=== PATIENT | female | born 1955 | race Caucasian/White ===

== ENCOUNTER 2020-04-24 04:00 | Emergency (ER) | payer SELFPAY ==
[~2020-04-24] VITALS: Ht 157.5 cm; Wt 65.8 kg
[2020-04-24 04:05] VITALS: BP 127/77
[2020-04-24 04:42] VITALS: BP 127/77
== END 2020-04-24 04:42 | disposition home or self-care (01) ==
LOC: MED 04:00
DX: K92.1 Melena (principal); Z85.048 Personal history of other malignant neoplasm of rectum, rectosigmoid junction, and anus
CPT/HCPCS: 99281

== ENCOUNTER 2020-09-14 13:14 | Emergency (ER) | payer MEDICAID ==
[~2020-09-14] VITALS: Ht 160 cm; Wt 68.0 kg
[2020-09-14 13:19] VITALS: BP 127/54
--- NOTE | 2020-09-14 13:23 | NUR ---
PT TO AWAIT IN LOBBY
--- NOTE | 2020-09-14 13:50 | NUR ---
PT TAKEN FOR ULTRASOUND VIA W/C
[2020-09-14 15:49] LABS: BASOPHILS # (AUTO) 0.1 K/uL (0.00-0.22); BASOPHILS % (AUTO) 0.7 % (0.0-2.0); EOSINOPHILS # (AUTO) 0.3 K/uL (0-0.4); EOSINOPHILS % (AUTO) 2.7 % (0.0-4.0); HEMATOCRIT 40.9 % (36-48); HEMOGLOBIN 13.3 g/dL (12.0-16.0); LYMPHOCYTES # (AUTO) 2.9 K/uL (2.5-16.5); LYMPHOCYTES % (AUTO) 28.1 % (20.5-51.1); MEAN CORPUSCULAR HEMOGLOBIN 29 pg (27-31); MEAN CORPUSCULAR HGB CONC 33 g/dL (33-37); MEAN CORPUSCULAR VOLUME 89.4 fL (80-94); MONOCYTES # (AUTO) 0.9 K/uL (0.8-1.0); MONOCYTES % (AUTO) 9.2 % (1.7-9.3); NEUTROPHILS % (AUTO) 59.3 % (42.2-75.2); PLATELET COUNT (AUTO) 429 K/uL (140-450); RED BLOOD CELL COUNT(AUTO) 4.57 MIL/uL (4.20-5.40); RED CELL DISTRIBUTION WIDTH 13.7 % (11.6-13.7); WHITE BLOOD COUNT (AUTO) 10.2 K/uL (4.8-10.8)
--- NOTE | 2020-09-14 16:05 | NUR ---
Ambulated to bed 10
--- NOTE | 2020-09-14 16:08 | NUR ---
65/F presents to ED with c/o right upper arm pain since today. Patient states "I think I have a blood clot in my upper arm." Patient states her arm has been having a constant dull pain, states "it is getting swollen and red and purple." No swelling, redness or warmth noted to are, patient able to move extremities equally and appropriately, site is non tender to touch. Pulses and sensation equal bilaterally, patient had port placed in right upper chest 3 weeks ago for chemo treatments for dx of rectal cancer. Patient alert and oriented x4, answering questions appropriately in full clear sentences.
[2020-09-14 16:11] LABS: PROTHROMBIN TIME 9.4 secs (10.8-13.4)
[2020-09-14 16:30] LABS: ALBUMIN 3.5 g/dL (3.4-5.0); ANION GAP 15.1 (8-16); CARBON DIOXIDE 22.7 mmol/L (21-32); CREATININE 0.9 mg/dL (0.6-1.3); POTASSIUM 3.8 mmol/L (3.5-5.1); TOTAL BILIRUBIN 0.3 mg/dL (0.0-1.0)
[2020-09-14] MEDS ORDERED: NAPR-54 PO (16:47)
[2020-09-14 17:00] VITALS: BP 127/54
== END 2020-09-14 17:00 | disposition home or self-care (01) ==
LOC: MED 13:14
DX: M79.601 Pain in right arm (principal); X58.XXXA Exposure to other specified factors, initial encounter; Y93.89 Activity, other specified; Y92.89 Other specified places as the place of occurrence of the external cause; Y99.8 Other external cause status
CPT/HCPCS: 36415; 80053; 85025; 85610; 93971; 99284

== ENCOUNTER 2022-04-29 12:47 | Emergency (ER) | payer MEDICAID ==
[~2022-04-29] VITALS: Ht 157.5 cm; Wt 65.8 kg
[~2022-04-29 12:47] MED LIST: NAPR-54 PO
[2022-04-29 12:48] VITALS: BP 124/72
--- NOTE | 2022-04-29 12:51 | NUR ---
BRISEYDA ALS TAKEN TO BED 3
--- NOTE | 2022-04-29 13:23 | NUR ---
PT UPSET THAT IT IS LOUD IN THE ER AND SHE HAS NOT RECEIVED ANY MEDICATIONS. PT INFORMED THAT THE DOCTOR NEEDS TO SEE HER FIRST IN ORDER FOR US TO GIVE MEDICATIONS AND THERE IS A HEAD CT ORDERED. PT STATED SHE WANTED TO LEAVE AND SEEN WALKING OUT OF ER. PATIENT LEFT WITHOUT BEING SEEN BY DR. PITTS. NO FURTHER CARE PROVIDED FOR PATIENT.
== END 2022-04-29 13:23 | disposition left against medical advice (07) ==
LOC: MED 12:47
DX: R51.9 Headache, unspecified (principal); Z53.21 Procedure and treatment not carried out due to patient leaving prior to being seen by health care provider

== ENCOUNTER 2022-05-27 22:45 | Emergency (ER) | payer MEDICAID ==
[~2022-05-27] VITALS: Ht 160 cm; Wt 65.8 kg
[2022-05-27 23:21] VITALS: BP 110/73
--- NOTE | 2022-05-27 23:26 | NUR ---
TO LOBBY FOLLOWING TRIAGE
--- NOTE | 2022-05-27 23:57 | NUR ---
Patient taken to bed 1.
[2022-05-28] MEDS ORDERED: KETOROLAC 30 MG/ML VIAL IVP ONE (00:45)
[2022-05-28] MEDS ORDERED: LIDOCAINE 5% 1 EA PATCH TP ONE (00:45)
--- NOTE | 2022-05-28 00:47 | NUR ---
Patient taken to CT scan via gurney.
[2022-05-28] MEDS ORDERED: KETOROLAC 30 MG/ML VIAL IM ONE (00:50)
--- NOTE | 2022-05-28 01:06 | NUR ---
pt returned from CT. assisted to restroom.
--- NOTE | 2022-05-28 01:45 | NUR ---
patient pain level decreased 7/10, patient is comfortable, right side lying
[2022-05-28] MEDS ORDERED: LID5T TP (02:24)
[2022-05-28] MEDS ORDERED: IBUP-2213 PO (02:24)
[2022-05-28 02:31] VITALS: BP 128/73
--- NOTE | 2022-05-28 02:31 | NUR ---
Patient discharged with v/s stable. Written and verbal after care instructions given and explained. Patient alert, oriented and verbalized understanding of instructions. Ambulatory with steady gait. All questions addressed prior to discharge. ID band removed. Patient advised to follow up with PMD. Rx of ibuprofen and lidoderm 5% patch given. Patient educated on indication of medication including possible reaction and side effects. Opportunity to ask questions provided and answered.
== END 2022-05-28 02:31 | disposition home or self-care (01) ==
LOC: MED 22:45
DX: S43.402A Unspecified sprain of left shoulder joint, initial encounter (principal); S20.212A Contusion of left front wall of thorax, initial encounter; Z87.448 Personal history of other diseases of urinary system; Z98.890 Other specified postprocedural states; Z85.048 Personal history of other malignant neoplasm of rectum, rectosigmoid junction, and anus; Z79.899 Other long term (current) drug therapy; Z79.1 Long term (current) use of non-steroidal anti-inflammatories (NSAID); W11.XXXA Fall on and from ladder, initial encounter; Y93.89 Activity, other specified; Y92.009 Unspecified place in unspecified non-institutional (private) residence as the place of occurrence of the external cause; Y99.8 Other external cause status
CPT/HCPCS: 71250; 73030; 96372; 99285; J1885